=== PATIENT | female | born 1990 | race Caucasian/White ===

== ENCOUNTER → 2018-02-19 09:10 | Outpatient (CLI) | payer OTHER, SELFPAY ==
[2018-03-04 20:54] LABS: HCG Quantitative /Beta subunit 12512 mIU/mL
== END ==
PROVIDERS: PCP Family Medicine; Visit Provider Family Medicine
DX: O20.0 Threatened abortion (principal)
CPT/HCPCS: 36415; 84702

== ENCOUNTER → 2018-09-10 16:50 | Outpatient (CLI) | payer OTHER, SELFPAY ==
[2018-09-12 16:56] LABS: Progesterone 14.6 ng/mL
== END ==
PROVIDERS: Family Provider Family Medicine; PCP Family Medicine
DX: Z31.9 Encounter for procreative management, unspecified (principal)
CPT/HCPCS: 36415; 84144

== ENCOUNTER → 2019-01-12 16:48 | Outpatient (CLI) | payer OTHER, SELFPAY ==
[2019-01-12 17:58] LABS: Appearance Urine UA CLEAR; Bilirubin Urine UA NEGATIVE (NEGATIVE); Color Urine UA YELLOW; Glucose Urine UA NEGATIVE (Negative); Ketones Urine UA NEGATIVE (NEGATIVE); Leukocyte Esterase Urine UA NEGATIVE (NEGATIVE); Nitrite Urine UA NEGATIVE (Negative); Occult Blood Urine UA NEGATIVE (Negative); Protein Urine UA NEGATIVE (Negative); Specific Gravity Urine UA 1.015 (1.000-1.035); Urobilinogen Urine UA 0.2 E.U./dL (0.2)
[2019-01-12 18:09] LABS: Glucose 93 mg/dL (70-100); Hemoglobin A1C% w Est Avg Glu 4.8 % (4.0-6.0)
[2019-01-12 18:40] LABS: Add Manual Diff / Slide Review NO; Basophils Absolute Auto 0 /uL (0-100); Basophils Percent Auto 0.2 % (0-2); Eosinophils Absolute Auto 100 /uL (0-450); Eosinophils Percent Auto 1.1 % (2-4); Hematocrit 39.2 % (36-46); Lymphocytes Absolute Auto 2400 /uL (1100-4500); Lymphocytes Percent Auto 25.6 % (25-40); Mean Corpuscular HGB Conc 33.1 % (30-36); Mean Corpuscular Hemoglobin 28.9 PG (26-34); Mean Corpuscular Volume 87.4 fL (80-100); Monocytes Absolute Auto 500 /uL (0-900); Monocytes Percent Auto 5.7 % (3-14); Neutrophils Absolute Auto 6300 /uL (1500-7000); Neutrophils Percent Auto 67.4 % (50-75); Platelet Count 254 X10^3/uL (150-400); Red Blood Cell Count 4.48 X10^6/uL (4.0-5.2); Red Cell Distribution Width 13.4 % (11.6-14.8); White Blood Cell Count 9.4 X10^3/uL (4.5-11.0)
[2019-01-12 18:42] LABS: Hepatitis B Surface Antigen NEGATIVE s/c (NEGATIVE)
[2019-01-12 19:07] LABS: HIV 1 and 2 Antibody NEGATIVE (NEGATIVE); Hep C Virus Ab w/Reflex Quant NEGATIVE s/c (NEGATIVE)
[2019-01-14 15:10] LABS: Varicella IgG Antibody > 4000.00 Index (< 135.00)
[2019-01-15 23:04] LABS: RPR Screen Nonreactive (Nonreactive)
== END ==
PROVIDERS: PCP Family Medicine
DX: Z34.91 Encounter for supervision of normal pregnancy, unspecified, first trimester (principal)
CPT/HCPCS: 36415; 80055; 81003; 82947; 83036; 86703; 86787; 86803; 86850; 86900; 86901; 87086

== ENCOUNTER → 2019-02-08 16:50 | Outpatient (CLI) | payer OTHER, SELFPAY | PROVIDERS: PCP Family Medicine | DX: Z34.81 Encounter for supervision of other normal pregnancy, first trimester (principal); Z3A.12 12 weeks gestation of pregnancy; Z36.0 Encounter for antenatal screening for chromosomal anomalies | CPT/HCPCS: 36415; 84163; 84702 ==

== ENCOUNTER → 2019-03-08 16:30 | Outpatient (CLI) | payer OTHER, SELFPAY ==
[2019-03-12 12:27] LABS: Sequential Screen 2nd Trimeste SCREEN NEGATIVE
== END ==
PROVIDERS: PCP Family Medicine
DX: Z34.82 Encounter for supervision of other normal pregnancy, second trimester (principal)
CPT/HCPCS: 36415; 82105; 82677; 84163; 84702; 86336

== ENCOUNTER → 2019-05-04 09:21 | Outpatient (CLI) | payer OTHER, SELFPAY ==
[2019-05-04 10:59] LABS: Hematocrit 34.6 % (36-46); Hemoglobin 11.8 g/dL (12.0-16.0)
[2019-05-04 11:13] LABS: GTT (PREG) 1 Hour PP 50gm Dose 110 mg/dL (76-139)
== END ==
PROVIDERS: PCP Family Medicine
DX: Z34.82 Encounter for supervision of other normal pregnancy, second trimester (principal)
CPT/HCPCS: 36415; 82950; 85014; 85018

== ENCOUNTER → 2019-07-20 10:15 | Outpatient (CLI) | payer OTHER, SELFPAY ==
[2019-07-21 08:18] LABS: Strep Grp B PCR POS for Grp B Strep
== END ==
PROVIDERS: PCP Family Medicine
DX: Z34.83 Encounter for supervision of other normal pregnancy, third trimester (principal); Z3A.35 35 weeks gestation of pregnancy
CPT/HCPCS: 87186; 87653

== ENCOUNTER 2019-07-31 07:27 | Inpatient (IN) | payer OTHER, SELFPAY ==
[2019-07-31] MEDS: OXYTOCIN PREMIX 30 UNIT/500 ML PLAST..BAG IV (08:55)
[2019-07-31] MEDS: CLINDAMYCIN 600 MG/50 ML PIGGYBACK 50 MG IV ×2 (08:55→15:02)
[2019-07-31] MEDS: LACTATED RINGERS 1,000 ML 100 ML IV (08:55)
--- NOTE | 2019-07-31 09:01 | P.HPOB_ITS ---
OB HPI Date/Time Date of admission: 07/31/19 Date Patient Seen: 07/31/19 Time Patient Seen: 09:01 History of Present Condition Chief complaint: : 2 Para: 0 Estimated Date of Delivery: 08/22/19 Estimated Gestational Age (weeks): 36 5/7 Narrative: Anne-Marie Anna is a 29 year old female two para 0 who presents with spontaneous rupture of membranes. The patient is GBS positive. The patient has had an uneventful . Blood pressures have been normotensive. Urines have been negative for glucose and protein. She has adequate fundal growth. She has had a documented 26 lb of weight gain. Indications Indication for induction OB: other (Premature spontaneous rupture of membranes) History of Present care: good care Dating criteria: LMP confirmed by 1st trimester US Ultrasounds: normal 1st trimester US and normal mid trimester US Obstetrical complications: none Medical complications: none Narrative: Uneventful pregnancyegative Preadmission Labs Blood type: B (+) positive -: Antibody screen: negative, Cystic fibrosis screen: unknown, GBS status: positive, HBsAG: negative, HIV: negative, HSV 1: negative, HSV 2: negative and RPR/VDLR: negative -: Chlamydia screen: detected (Negative) and Gonorrhea screen: detected (Negative) -: Rubella: immune and Varicella: immune HCT: 34.6 HCAB: negative PAP: Normal Sequential screen: Negative Urine: Negative 1 hr GTT: 11 Evaluation Evaluation Baseline heart rate: 150 Variability: Average (6-10) monitor accelerations: Present monitor decelerations: Absent Contraction Frequency (minutes): 10 Category of Tracing: I Cervical dilation (cm): 1 Cervical effacement (%): 50 station: -2 Non-invasive Membranes Rupture Test: positive PFSH Medical History PVCs (premature ventricular contractions) (Chronic) Radius/ulna fracture (Resolved) Surgical History History of myringotomy (Resolved) History of repair of anterior cruciate ligament of right knee (Resolved 2006) Family History Mother Osteoarthritis Hypertension Father Hyperlipidemia Grandmother Brain tumor Lung cancer Cancer Diabetes mellitus Breast cancer Grandmother Hypertension Hyperlipidemia Social History marital status: lives independently: Yes caregiver/support person: No pets and animals: Yes education level: master's degree occupational status: employed Smoking Status: Never smoker alcohol intake: current Meds Home Medications and Allergies Home Medications Medication Instructions Recorded Confirmed Type famotidine 10 mg tablet 10 mg PO DAILY 10/19/18 10/19/18 History loratadine 10 mg tablet 10 mg PO DAILY 10/19/18 12/30/18 History prenat.vits,terry,qgf-uuuq-qngui 1 tab PO DAILY 12/30/18 12/30/18 History fvztfysrht-wgtskgahfrtpy-fiskkuyo 1 cap PO Q6H PRN #30 cap 05/04/19 05/04/19 Rx 50 mg-300 mg-40 mg capsule omeprazole 20 mg capsule,delayed 20 mg PO DAILY #30 cap 07/07/19 Rx release Double Electric Breast Pump #1 ea 07/20/19 07/20/19 Rx Allergies Allergy/AdvReac Type Severity Reaction Status Date / Time Sulfa (Sulfonamide Allergy Intermediate RASH Verified 12/30/18 10:19 Antibiotics) [SULFA (SULFONAMIDE ANTIBIOTICS)] amoxicillin [From AUGMENTIN] Allergy Unknown Verified 12/30/18 10:19 clavulanic acid Allergy Unknown Verified 12/30/18 10:19 [From AUGMENTIN] Review of Systems Review of Systems ROS Unobtainable: All systems reviewed & are unremarkable except as noted in HPI and below Exam Const General: cooperative and healthy appearing [facility] Head: normal to inspection Ears: hearing grossly normal bilaterally Nose: external nose normal Face and sinus: normal facial exam Mouth: oral mucosae normal, lip normal, tongue normal and moist mucous membranes Teeth and gingiva: dentition normal Throat: posterior oropharynx normal Eyes General: appearance normal, both eyes and all related structures Neck Neck: normal visual inspection and full ROM Chest Chest: normal inspection of the chest and normal palpation of entire chest wall Breast inspection: normal inspection of the breasts and normal inspection of the axillae Breast Palpation: normal palpation of the breasts and normal palpation of the axillae Resp Effort & Inspection: normal respiratory effort Auscultation: clear to auscultation bilaterally Cardio Palpation: normal PMI Rate: regular rate Rhythm: regular rhythm Heart Sounds: S1 normal and S2 normal GI Inspection: normal to inspection Palpation: soft and no hepatosplenomegaly Percussion: normal to percussion Auscultation: normal bowel sounds External Female Exam: external appearance normal and normal appearance of the urethra Speculum Exam - Vagina: normal appearance of the vagina and normal vaginal discharge OB/External & Speculum: external exam normal Manual OB Exam: dilated 1, effaced 50% and station -2 Uterus Location (Fundal Height): 36 Presentation: vertex Amniotic Fluid: clear Back/Spine/Pelvis Thoracic/Lumbar Spine: thoracic and lumbar spine normal to inspection Skin General: no rashes or lesions noted Neuro General: alert, oriented x3, tone normal and moves all extremities Cognition: normal cognition Speech: speech normal Gait: normal gait Motor: muscle tone normal throughout Sensory Exam: no sensory deficits noted Extrem General: normal to inspection and normal exam except as noted Psych Appearance: grossly normal and well kempt Mental Status: mental status grossly normal Speech and Movement: speech and movement normal Objective Labs Result Diagrams: 07/31/19 08:40 Assessment and Plan Assessment and Plan Assessment and Plan narrative: 36 week intrauterine by good dates Premature spontaneous rupture membranes Group B strep positive Plan for clindamycin prophylactic therapy Plan for Pitocin induction of labor
[2019-07-31 09:02] LABS: Add Manual Diff / Slide Review NO; Basophils Absolute Auto 100 /uL (0-100); Basophils Percent Auto 0.5 % (0-2); Eosinophils Absolute Auto 100 /uL (0-450); Eosinophils Percent Auto 0.5 % (2-4); Hematocrit 37.2 % (36-46); Hemoglobin 12.4 g/dL (12.0-16.0); Lymphocytes Absolute Auto 2300 /uL (1100-4500); Lymphocytes Percent Auto 23.6 % (25-40); Mean Corpuscular HGB Conc 33.4 % (30-36); Mean Corpuscular Hemoglobin 26.9 PG (26-34); Mean Corpuscular Volume 80.5 fL (80-100); Monocytes Absolute Auto 700 /uL (0-900); Monocytes Percent Auto 7.4 % (3-14); Neutrophils Absolute Auto 6700 /uL (1500-7000); Platelet Count 240 X10^3/uL (150-400); Red Blood Cell Count 4.63 X10^6/uL (4.0-5.2); Red Cell Distribution Width 14.6 % (11.6-14.8); White Blood Cell Count 9.9 X10^3/uL (4.5-11.0)
[2019-07-31] MEDS: ONDANSETRON 4 MG/2 ML INJ IV (13:49)
[2019-07-31] MEDS: fentaNYL 100 MCG/2 ML INJ IV ×2 (15:44→16:54)
--- NOTE | 2019-07-31 19:42 | P.PCNOB_ITS ---
Events: Labor < 37 Weeks Labor & Delivery Delivery date: 07/31/19 Intrapartal events: None Cervical ripening method: none Induction method: per pitocin protocol Delivery augmentation: pitocin Delivery monitor: internal FHT and internal uterine Route of delivery: L&D Laceration Description: Perineal - 1st Degree Delivery repair: chromic Estimated blood loss (mL): 250 Anesthesia type: Epidural Complications: None Narrative: Patient with premature spontaneous rupture membranes at 36 and five 7th weeks. Pitocin induction of labor. Epidural was placed. Patient made rapid progress to complete post and delivered spontaneously live born infant with scores eight at 1 minute nine at 5 minutes in good condition. Nursing and respiratory therapy was in attendance and per oz the infant normal in good condition Plan for aftercare: Routine
[2019-07-31] MEDS: IBUPROFEN 600 MG TABLET PO (21:01)
[2019-08-01] MEDS: IBUPROFEN 600 MG TABLET PO ×4 (02:04→20:36)
[2019-08-01 05:21] LABS: Hematocrit 32.1 % (36-46); Hemoglobin 10.8 g/dL (12.0-16.0)
[2019-08-01] MEDS: FERROUS GLUCONATE 324 MG TABLET PO (08:20)
[2019-08-01] MEDS: PRENATAL VIT,CALC/IRON/FOLIC 1 TABLET 1 TAB PO (08:20)
[2019-08-01] MEDS: DOCUSATE 250 MG CAPSULE PO (08:20)
--- NOTE | 2019-08-01 08:33 | P.PNOB_ITS ---
Subjective - OB Subjective Patient comments: no complaints [place] baby status: doing well feeding status: exclusively breast feeding Narrative: Patient 12 hours status post spontaneous vaginal delivery without difficulty. Baby weighed 5 lb 6 oz. Baby is feeding well. Mother is having no difficulties Date Patient Seen: 08/01/19 Time Patient Seen: 08:34 Exam Narrative Exam Narrative: Fundus is U minus two Lochia is scant Perineum without evidence of hematoma Objective Labs Result Diagrams: 08/01/19 05:03 Labs: Laboratory Results - last 24 hr 07/31/19 08/01/19 08:40 05:03 Hgb 10.8 L Hct 32.1 L Blood Type B Positive Antibody Screen Negative Assessment & Plan Plan day: 1 plan OB: routine care Time Spent With Patient Time: Total time spent is greater than 50% in coordination of care (as documented) at patient's floor/unit and/or counseling patient: Time with patient: less than 15 minutes
[2019-08-02] MEDS: IBUPROFEN 600 MG TABLET PO ×2 (03:26→08:57)
[2019-08-02] MEDS: LANOLIN OINT 7 GM 1 APPLIC TOP (03:27)
--- NOTE | 2019-08-02 07:55 | P.DS_ITS ---
Discharge Providers Provider Date of admission: 07/31/19 07:27 Discharge Date: 08/02/19 Primary care physician: Marychuy Post MD Consults: 07/31/19 20:27 Consult to Medical Office Clerk Routine Comment: Discharge provider: Jaskaran Zaidi MD Summary Hospital Course Date Patient Seen: 08/02/19 Time Patient Seen: 07:55 Procedures: Pitocin induction of labor Internal monitor Epidural anesthesia Spontaneous vaginal delivery Hospital Course: Patient is 29 year old three para 0 who presented with premature spontaneous rupture the membranes at 36 and half weeks. Pitocin was begun. There was slow initial progress. An epidural was placed. Patient made good progress to complete and with pushing delivered spontaneously a live born male with score of eight at 1 minute and eight at 5 minutes in good condition. The patient sustained a first-degree vaginal tear which was repaired with two 0 chromic suture. Placenta delivered spontaneously. Cord had three vessels. The estimated blood loss was 250 cc. Post delivery the patient did well. She remained afebrile with stable vital signs and was progressively alimentated and ambulated without difficulty. She was discharged home for follow-up in four weeks Peripartum Data Delivery Method: Natural Vaginal Laceration description: Perineal - 1st Degree complications: none Status at Discharge Cognitive/behavioral status at discharge: oriented Functional status at discharge: independent ambulation Overall status at discharge: patient is progressing back to baseline Time Spent with Patient Time attestation: Total time spent providing and/or coordinating discharge services: Time spent: Less than 30 minutes Objective Labs Result Diagrams: 08/01/19 05:03 Exam Narrative Exam Narrative: Fundus U minus four Lochia scant Perineum without ecchymosis Discharge Plan Discharge Plan Patient Disposition: Home Discharge Med Rec/Prescriptions Prescriptions: New Dermoplast (with menthol) 20-0.5 % Aerosol 1 spray topical Q1HR PRN (Reason: perineal pain) Qty: 1 RF: 0 oxycodone-acetaminophen 5-325 mg Tablet 2 tab PO Q4HR PRN (Reason: Pain, Severe (7-10)) Qty: 10 RF: 0 ibuprofen 600 mg Tablet 600 mg PO Q6HR PRN (Reason: Pain, Mild (1-3)) Qty: 20 RF: 0 docusate sodium 250 mg Capsule 250 mg PO DAILY Qty: 10 RF: 0 Uir-E-Fxpipr Cream 1 applic topical PRN PRN (Reason: Tenderness) Qty: 1 RF: 0 ferrous gluconate 324 mg (38 mg iron) Tablet 324 mg PO DAILY Qty: 30 RF: 0 Continued omeprazole 20 mg capsule,delayed release(DR/EC) 20 mg PO DAILY Qty: 30 RF: 3 loratadine [Allergy Relief (loratadine)] 10 mg tablet 10 mg PO DAILY RF: 0 famotidine [Pepcid AC] 10 mg tablet 10 mg PO DAILY RF: 0 prenat.vits,terry,pkn-agiu-gyuiz tablet 1 tab PO DAILY RF: 0 enifsasftn-zjmwhflobjokg-fbps [Fioricet] 50-300-40 mg capsule 1 cap PO Q6H PRN (Reason: pain) Qty: 30 RF: 0 (DME) Double Electric Breast Pump Qty: 1 RF: 0 Follow up/Referrals: Marychuy Post MD [Primary Care Provider] - Jaskaran Zaidi MD [Physician] - 1 Month Provider Discharge Instructions Diet: Diet as Tolerated Activity: Up ad vicente Skin/Wound/Dressing Care Report to your healthcare provider any signs of infection, such as:: chills, fever, increased pain, unusual drainage and unusual redness Other wound treatment: Keep perineum clean and dry Discharge Data Primary Care Provider: Marychuy Post
[2019-08-02] MEDS: FERROUS GLUCONATE 324 MG TABLET PO (08:49)
[2019-08-02] MEDS: PRENATAL VIT,CALC/IRON/FOLIC 1 TABLET 1 TAB PO (08:52)
[2019-08-02] MEDS: DOCUSATE 250 MG CAPSULE PO (08:52)
== END 2019-08-02 14:35 | disposition home or self-care (01) | DRG 806 ==
PROVIDERS: PCP Family Medicine
DX: O42.013 Preterm premature rupture of membranes, onset of labor within 24 hours of rupture, third trimester (principal); D62 Acute posthemorrhagic anemia; Z37.0 Single live birth; O70.0 First degree perineal laceration during delivery; Z3A.36 36 weeks gestation of pregnancy; O99.824 Streptococcus B carrier state complicating childbirth; D64.9 Anemia, unspecified; O99.02 Anemia complicating childbirth
CPT/HCPCS: 01967; 36415; 59050; 59400; 85014; 85018; 85025; 86850; 86900; 86901; G0379; J2405; J2590; J3010

== ENCOUNTER → 2020-07-21 13:47 | Outpatient (CLI) | payer OTHER, MEDICAID, SELFPAY ==
[2020-07-21 14:18] LABS: Add Manual Diff / Slide Review NO; Basophils Absolute Auto 0 /uL (0-100); Basophils Percent Auto 0.4 % (0-2); Eosinophils Absolute Auto 300 /uL (0-450); Eosinophils Percent Auto 2.8 % (2-4); Hematocrit 38.8 % (36-46); Lymphocytes Absolute Auto 2800 /uL (1100-4500); Lymphocytes Percent Auto 28.6 % (25-40); Mean Corpuscular HGB Conc 33.4 % (30-36); Mean Corpuscular Hemoglobin 29.2 PG (26-34); Mean Corpuscular Volume 87.7 fL (80-100); Monocytes Absolute Auto 600 /uL (0-900); Neutrophils Absolute Auto 6000 /uL (1500-7000); Neutrophils Percent Auto 62.2 % (50-75); Platelet Count 268 X10^3/uL (150-400); Red Blood Cell Count 4.43 X10^6/uL (4.0-5.2); Red Cell Distribution Width 13.1 % (11.6-14.8); White Blood Cell Count 9.6 X10^3/uL (4.5-11.0)
[2020-07-21 14:24] LABS: Appearance Urine UA CLEAR; Bilirubin Urine UA NEGATIVE (NEGATIVE); Color Urine UA YELLOW; Glucose Urine UA NEGATIVE (Negative); Ketones Urine UA NEGATIVE (NEGATIVE); Leukocyte Esterase Urine UA NEGATIVE (NEGATIVE); Nitrite Urine UA NEGATIVE (Negative); Occult Blood Urine UA NEGATIVE (Negative); Protein Urine UA NEGATIVE (Negative); Specific Gravity Urine UA <=1.005 (1.000-1.035); Urobilinogen Urine UA 0.2 E.U./dL (0.2)
[2020-07-21 14:27] LABS: pH Urine UA 6.5 (4.5-8.0)
[2020-07-22 07:08] LABS: RPR Screen Non Reactive (Non Reactive)
[2020-07-22 08:09] LABS: Varicella IgG Antibody >4000 index (Immune >165)
[2020-07-23 17:23] LABS: HIV 1 & 2 Ab/Ag 4th Gen Combo NEGATIVE (NEGATIVE); Hep C Virus Ab w/Reflex Quant NEGATIVE s/c (NEGATIVE); Hepatitis B Surface Antigen NEGATIVE s/c (NEGATIVE)
== END ==
PROVIDERS: PCP Family Medicine; Referring Provider Family Medicine; Visit Provider Family Medicine
DX: Z34.81 Encounter for supervision of other normal pregnancy, first trimester (principal)
CPT/HCPCS: 36415; 80055; 81003; 86787; 86803; 86850; 86900; 86901; 87086; 87389

== ENCOUNTER → 2020-10-09 09:16 | Outpatient (CLI) | payer OTHER, MEDICAID, SELFPAY ==
--- NOTE | 2020-10-09 09:19 | DI.US.S_ITS ---
PROCEDURE: US OB >= 14 WEEKS FETUS INDICATIONS: ANATOMY OUTSIDE/PRIOR DATING DATA: Last menstrual period (LMP): 05/21/2020. LMP-based estimated date of delivery ([place]): 02/25/2021 . First dating scan (date and location): 10/09/2020 . Estimated date of delivery ([place]) from first dating scan: 02/27/2021 . TECHNIQUE: Real-time scanning was performed of the fetus, with image documentation and biometric measurements. Endovaginal scanning: No COMPARISON: [facility], , OB >= 14 WEEKS FETUS, 05/04/2019, 8:57. FINDINGS: General: A single living intrauterine gestation is present. Presentation: Variable. Placenta: Placental position is anterior , without previa. Amniotic fluid index: 14.1 cm, normal range is 5-24 cm. heart rate: 163 beats per minute. Maternal cervical canal: 3.5 cm long. Normal lower limit is 2.5 cm. biometrics: Biparietal diameter: 19 weeks 5 days Head circumference: 19 weeks 6 days Abdominal circumference: 20 weeks 1 day Femur length: 19 weeks 3 days Estimated gestational age from initial scan: not applicable. Composite gestational age from present scan: 19 weeks 6 days Estimated weight and percentile: 216 g, 29th percentile Measurement variability for biometric dating: +/- 7 days from 14 weeks to 15 weeks 6 days gestation, +/- 10 days from 16 weeks to 21 weeks 6 days gestation, +/- 2 weeks from 22 weeks to 27 weeks 6 days gestation, +/- 3 weeks for 28 weeks gestation or later. weight reference: 4500 g or EFW >90/95% is considered macrosomia or large for gestational age. EFW <10% is small for gestational age. EFW 5% or less is considered intra-uterine growth restriction. Anatomic survey: Neuro: Ventricles are non-dilated at less than 10 mm. Cisterna magna is normal at 3-11 mm. Cerebellum is normal in size and morphology. Nuchal skin fold: Normal at less than 6 mm between 14-21 weeks gestational age. Face: Nose and lips, facial profile are normal. Spine: No evidence for spina bifida. Heart: 4-chambered heart is present, with normal ventricular outflow tracts. Diaphragm: Diaphragm is intact. Stomach: Left-sided stomach is present. Kidneys: No hydronephrosis. Normal is less than 5 mm in 2nd trimester, less than 7 mm in 3rd trimester. Cord: 3-vessel cord has orthotopic insertion. Bladder: Normal in size. Extremities: All 4 extremities identified. IMPRESSION: 1. Single living IUP with mean composite gestational age of 19 weeks 6 days corresponding to ultrasound [place] of 02/27/2021. 2. Normal anatomic survey. Dictated by: [facility] Interpreted: Carter Gillis MD on 10/09/2020 at 13:29 Approved by: Carter Gillis M.D. on 10/09/2020 at 14:22
== END ==
PROVIDERS: PCP Family Medicine; Referring Provider Midwife; Visit Provider Midwife
DX: Z36.89 Encounter for other specified antenatal screening (principal); Z3A.19 19 weeks gestation of pregnancy
CPT/HCPCS: 76811

== ENCOUNTER → 2021-05-11 11:05 | Outpatient (CLI) | payer OTHER, MEDICAID, SELFPAY ==
[2021-05-11 16:30] LABS: Urine N gonorrhoeae NOT DETECTED
[2021-05-11 16:40] LABS: Urine Chlamydia NOT DETECTED
== END ==
PROVIDERS: PCP Family Medicine; Visit Provider Family Medicine
DX: Z11.3 Encounter for screening for infections with a predominantly sexual mode of transmission (principal)
CPT/HCPCS: 81025; 87491; 87591

== ENCOUNTER → 2021-06-08 10:02 | Outpatient (CLI) | payer OTHER, MEDICAID, SELFPAY | PROVIDERS: Family Provider Family Medicine; PCP Family Medicine; Visit Provider Family Medicine | DX: N89.8 Other specified noninflammatory disorders of vagina (principal) | CPT/HCPCS: 87070; 87205; 87210 ==

== ENCOUNTER 2021-08-01 09:00 | Outpatient (RCR) | payer OTHER, MEDICAID, SELFPAY ==
--- NOTE | 2021-06-15 14:52 | PT.OIE ---
Current Diagnoses Stress incontinence (female) (male) (06/15/21) Unspecified urinary incontinence (06/15/21) Past Medical History (Last Updated 07/11/20 @ 11:33 by Miriam Reyes RN) Acid reflux Chicken pox (~1993) Headache History of microdiscectomy (~2014) History of myringotomy (~1992) History of repair of anterior cruciate ligament of right knee (2006) History of right knee surgery (~2006) History of surgery on arm (~2001) Infertility Migraines (~2014) PVCs (premature ventricular contractions) Radius/ulna fracture Restless leg syndrome (~2018) [place] teeth removed (~2003) Past Surgical History (Last Updated 04/24/21 @ 11:28 by Marychuy Post MD) Anesthesia History of microdiscectomy (~2014) History of myringotomy (~1992) History of repair of anterior cruciate ligament of right knee (2006) History of right knee surgery (~2006) History of surgery on arm (~2001) S/P discectomy [place] teeth removed (~2003) Visit Care Team Role Provider Type Marychuy Post MD Attending Provider Physician Family Provider Primary Care Provider Referring Provider Specialty: [facility] Practice Address: [address] [place] [address], [facility] Email: [email or web address] Physical Therapy Initial Evaluation PT-OP-A Visit Information Start: 06/01/21 13:06 Freq: Status: Active Protocol: Document 06/15/21 09:00 AMB (Rec: 06/15/21 14:49 AMB [id number]) Out-Patient Physical Therapy Visit Information Visit Information Visit Type Initial Evaluation Visit Start Time 09:00 Visit Stop Time 09:45 Total Visit Minutes 45 Visit Number 1 PT-OP-B Current Condition Start: 06/01/21 13:06 Freq: Status: Active Protocol: Document 06/15/21 08:58 AMB (Rec: 06/15/21 09:25 AMB [id number]) Current Condition History of Current Condition Onset Date 2 years ago Current Complaints Urinary leaking- stress History of Current Condition In first , sneezing and coughing caused leaking, now daily leaking. Vaginal deliveries a little bit of tearing, needed one stitch with first, then no stitches with second, denies prolonged pushing. Uses a panty liner. 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 Denies pelvic heaviness, constipation, fecal incontinence, pelvic pain. Treatment Goals Patient/Caregiver Goals Not have to worry about stress incontinence Prior Functional Status Baseline Function- ADL's Independent Baseline Function- Mobility Independent Current Functional Impairments (Reported) Functional Limitations- ADL's leaking urine Personal Factors Other Personal Factors That May Effect Medical hx microdiscectomy for Therapy/Recovery R sided radicular pain in 2015, back pain has returned PT-OP-I Pelvic Floor Start: 06/01/21 13:06 Freq: Status: Active Protocol: Document 06/15/21 09:00 AMB (Rec: 06/15/21 14:49 AMB [id number]) Pelvic Floor Assessment Urine Pelvic Floor Surgery No Leakage Size Small Leakage Cause Cough,Exercise,Lifting,Sneeze Other Leakage Causes squatting to weed Leaks Per Day multiple Voiding Frequency 2-3 hours Urine Pad Type Panty Liner Pelvic Clock Pelvic Clock Other 2 finger width diastasis recti above umbilicus 2.5 diastasis recti below Prolapse Prolapse Comments pt with difficulty with valsva but no prolapse visualized Perineal Descent Resting Absent Bearing Absent Contraction Ability Voluntary Contraction Moderate Voluntary Relaxation Moderate Manual Muscle Testing Left 2 Manual Muscle Testing Right 2 Manual Muscle Testing Anterior 2 Manual Muscle Testing Posterior 3 Muscle Endurance (Seconds) 7 Number of Quick Contractions In 10 6 Seconds PT-OP-T Assessment and Plan Start: 06/01/21 13:06 Freq: Status: Active Protocol: Document 06/15/21 09:00 AMB (Rec: 06/15/21 14:49 AMB [id number]) Physical Therapy Assessment Rehab Potential Rehabilitation Potential Good Evaluation Complexity Number of Personal Factors/Comorbidities 1-2 Number of Body Systems Impaired 1-2 Clinical Presentation at Evaluation Stable Goals Two Impairment Core strength Short Term Goal (STG) Anne-Marie will improve her pelvic floor strength so that she can hold a pelvic floor contraction for 10 seconds in standing. STG Duration 4 weeks Mortgage Funder Goal (LTG) Anne-Marie will improve her strength so that she can perform a full squat while paco her pelvic floor. LTG Duration 10 weeks One Impairment Incontinence Short Term Goal (STG) Anne-Marie will be able to cough without leaking urine. STG Duration 4 weeks Mortgage Funder Goal (LTG) Anne-Marie will be able to squat to pull weeds without leaking urine. LTG Duration 10 weeks Assessment Summary Assessment Anne-Marie attends physical therapy with stress urinary incontinence that started during the of her first child and has persisted. She is now 3 months post with her second, and while she can contract her pelvic floor, has poor endurance and decreased use of the more anterior muslces and levator ani. She will benefit from physical therapy for instruction in appropriate strengthening of her pelvic floor and her deep core muscles given her history of back pain and diastasis recti. Physical Therapy Plan Frequency and Duration Frequency of Treatment 1x/Week Duration of Treatment 10 weeks Plan of Care Start Date 06/15/21 Plan of Care End Date 08/24/21 Therapeutic Interventions Therapeutic Interventions Home Exercise Program,Manual Therapy,Neuromuscular Re- education,Self-Care/Home Management,Therapeutic Activities,Therapeutic Exercises Modalities Biofeedback,Electric Stimulation Next Visit Focus/Plan Next Note Type Treatment Note Next Visit Plan sEMG
--- NOTE | 2021-06-15 14:53 | PT.OPPOC ---
Physical, Occupational & Speech Therapy At [facility] Current Diagnoses Stress incontinence (female) (male) (06/15/21) Unspecified urinary incontinence (06/15/21) Visit Care Team Role Provider Type Marychuy Post MD Attending Provider Physician Family Provider Primary Care Provider Referring Provider Specialty: Family Practice Address: [address] [place] [address], [facility] Email: [email or web address] Plan Of Care PT-OP-T Assessment and Plan Start: 06/01/21 13:06 Freq: Status: Active Protocol: Document 06/15/21 09:00 AMB (Rec: 06/15/21 14:49 AMB [id number]) Physical Therapy Assessment Rehab Potential Rehabilitation Potential Good Evaluation Complexity Number of Personal Factors/Comorbidities 1-2 Number of Body Systems Impaired 1-2 Clinical Presentation at Evaluation Stable Goals Two Impairment Core strength Short Term Goal (STG) Anne-Marie will improve her pelvic floor strength so that she can hold a pelvic floor contraction for 10 seconds in standing. STG Duration 4 weeks Crop Consultant Goal (LTG) Anne-Marie will improve her strength so that she can perform a full squat while paco her pelvic floor. LTG Duration 10 weeks One Impairment Incontinence Short Term Goal (STG) Anne-Marie will be able to cough without leaking urine. STG Duration 4 weeks Longterm Goal (LTG) Anne-Marie will be able to squat to pull weeds without leaking urine. LTG Duration 10 weeks Assessment Summary Assessment Anne-Marie attends physical therapy with stress urinary incontinence that started during the of her first child and has persisted. She is now 3 months post with her second, and while she can contract her pelvic floor, has poor endurance and decreased use of the more anterior muslces and levator ani. She will benefit from physical therapy for instruction in appropriate strengthening of her pelvic floor and her deep core muscles given her history of back pain and diastasis recti. Physical Therapy Plan Frequency and Duration Frequency of Treatment 1x/Week Duration of Treatment 10 weeks Plan of Care Start Date 06/15/21 Plan of Care End Date 08/24/21 Therapeutic Interventions Therapeutic Interventions Home Exercise Program,Manual Therapy,Neuromuscular Re- education,Self-Care/Home Management,Therapeutic Activities,Therapeutic Exercises Modalities Biofeedback,Electric Stimulation Next Visit Focus/Plan Next Note Type Treatment Note Next Visit Plan sEMG Plan of Care Dates Plan of Care Start Date 06/15/21 Plan of Care End Date 08/24/21 Electronically Signed by: Nida Manriquez, PT 06/15/21 [id number] Please Sign and Return: I have reviewed this Plan of Care and certify that the skilled therapy services above are required to meet the patient?s needs. Physician Signature Date Printed Name and Credentials Clinical Instructor Signature Printed Name and Credentials
--- NOTE | 2021-07-05 09:42 | PT.OTN ---
Current Diagnoses Unspecified urinary incontinence (07/05/21) Physical Therapy Treatment Note PT-OP-A Visit Information Start: 06/01/21 13:06 Freq: Status: Active Protocol: Document 07/05/21 08:15 AMB (Rec: 07/05/21 09:36 AMB [email or web address]) Out-Patient Physical Therapy Visit Information Visit Information Visit Type Treatment Note Visit Start Time 08:15 Visit Stop Time 09:00 Total Visit Minutes 45 Visit Number 2 PT-OP-B Current Condition Start: 06/01/21 13:06 Freq: Status: Active Protocol: Document 06/15/21 08:58 AMB (Rec: 06/15/21 09:25 AMB [id number]) Current Condition History of Current Condition Onset Date 2 years ago Current Complaints Urinary leaking- stress History of Current Condition In first , sneezing and coughing caused leaking, now daily leaking. Vaginal deliveries a little bit of tearing, needed one stitch with first, then no stitches with second, denies prolonged pushing. Uses a panty liner. 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 Denies pelvic heaviness, constipation, fecal incontinence, pelvic pain. Treatment Goals Patient/Caregiver Goals Not have to worry about stress incontinence Prior Functional Status Baseline Function- ADL's Independent Baseline Function- Mobility Independent Current Functional Impairments (Reported) Functional Limitations- ADL's leaking urine Personal Factors Other Personal Factors That May Effect Medical hx microdiscectomy for Therapy/Recovery R sided radicular pain in 2014, back pain has returned PT-OP-C Subjective Start: 06/01/21 13:06 Freq: Status: Active Protocol: Document 07/05/21 08:15 AMB (Rec: 07/05/21 09:36 AMB [email or web address]) OP-PT Subjective Patient Comments Patient Comments Anne-Marie is challenged by standing and seated kegels, lying down is going ok. Sneezing continues to cause leaking. PT-OP-I Pelvic Floor Start: 06/01/21 13:06 Freq: Status: Active Protocol: Document 06/15/21 09:00 AMB (Rec: 06/15/21 14:49 AMB [id number]) Pelvic Floor Assessment Urine Pelvic Floor Surgery No Leakage Size Small Leakage Cause Cough,Exercise,Lifting,Sneeze Other Leakage Causes squatting to weed Leaks Per Day multiple Voiding Frequency 2-3 hours Urine Pad Type Panty Liner Pelvic Clock Pelvic Clock Other 2 finger width diastasis recti above umbilicus 2.5 diastasis recti below Prolapse Prolapse Comments pt with difficulty with valsva but no prolapse visualized Perineal Descent Resting Absent Bearing Absent Contraction Ability Voluntary Contraction Moderate Voluntary Relaxation Moderate Manual Muscle Testing Left 2 Manual Muscle Testing Right 2 Manual Muscle Testing Anterior 2 Manual Muscle Testing Posterior 3 Muscle Endurance (Seconds) 7 Number of Quick Contractions In 10 6 Seconds PT-OP-Q Treatments Start: 06/01/21 13:06 Freq: Status: Active Protocol: Document 07/05/21 08:15 AMB (Rec: 07/05/21 09:36 AMB [email or web address]) Therapeutic Exercises Sitting Exercises 1 Sitting Exercise Name rolling in Comments cues for breath Neuro Re-Education Treatment Other Activities 1 Details sEMG Comments long holds and quick flicks, cues for gradual contraction with long holds so there isn't as much of a spike in the beginning, cues for engaging levator PT-OP-T Assessment and Plan Start: 06/01/21 13:06 Freq: Status: Active Protocol: Document 07/05/21 08:31 AMB (Rec: 07/05/21 08:58 AMB [id number]) Physical Therapy Assessment Goals Two Impairment Core strength Short Term Goal (STG) Anne-Marie will improve her pelvic floor strength so that she can hold a pelvic floor contraction for 10 seconds in standing. STG Duration 4 weeks Shelter Goal (LTG) Anne-Marie will improve her strength so that she can perform a full squat while paco her pelvic floor. LTG Duration 10 weeks One Impairment Incontinence Short Term Goal (STG) Anne-Marie will be able to cough without leaking urine. STG Duration 4 weeks Mark Up Designer Goal (LTG) Anne-Marie will be able to squat to pull weeds without leaking urine. LTG Duration 10 weeks Assessment Summary Assessment quick flicks: Max 37, avg 18, rest 8. Anne-Marie did well with quick flicks, although coordination was a challenge. Long holds needs guidance to avoid large spike and then fatigue quickly. Physical Therapy Plan Next Visit Focus/Plan Next Note Type Treatment Note Next Visit Plan Review roll in, try to add roll out. Progress to standing as tolerated.
--- NOTE | 2021-08-01 15:41 | PT.OTN ---
Current Diagnoses Unspecified urinary incontinence (08/01/21) Physical Therapy Treatment Note PT-OP-A Visit Information Start: 06/01/21 13:06 Freq: Status: Active Protocol: Document 08/01/21 09:00 AMB (Rec: 08/01/21 09:47 AMB [id number]) Out-Patient Physical Therapy Visit Information Visit Information Visit Type Treatment Note Visit Start Time 09:00 Visit Stop Time 09:45 Total Visit Minutes 45 Visit Number 3 PT-OP-B Current Condition Start: 06/01/21 13:06 Freq: Status: Active Protocol: Document 06/15/21 08:58 AMB (Rec: 06/15/21 09:25 AMB [id number]) Current Condition History of Current Condition Onset Date 2 years ago Current Complaints Urinary leaking- stress History of Current Condition In first , sneezing and coughing caused leaking, now daily leaking. Vaginal deliveries a little bit of tearing, needed one stitch with first, then no stitches with second, denies prolonged pushing. Uses a panty liner. 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 Denies pelvic heaviness, constipation, fecal incontinence, pelvic pain. Treatment Goals Patient/Caregiver Goals Not have to worry about stress incontinence Prior Functional Status Baseline Function- ADL's Independent Baseline Function- Mobility Independent Current Functional Impairments (Reported) Functional Limitations- ADL's leaking urine Personal Factors Other Personal Factors That May Effect Medical hx microdiscectomy for Therapy/Recovery R sided radicular pain in 2014, back pain has returned PT-OP-C Subjective Start: 06/01/21 13:06 Freq: Status: Active Protocol: Document 08/01/21 09:00 AMB (Rec: 08/01/21 15:41 AMB [email or web address]) OP-PT Subjective Patient Comments Patient Comments Anne-Marie is continuing to have stress incontinence with sneezing. Maybe a bit better with squatting. PT-OP-I Pelvic Floor Start: 06/01/21 13:06 Freq: Status: Active Protocol: Document 06/15/21 09:00 AMB (Rec: 06/15/21 14:49 AMB [id number]) Pelvic Floor Assessment Urine Pelvic Floor Surgery No Leakage Size Small Leakage Cause Cough,Exercise,Lifting,Sneeze Other Leakage Causes squatting to weed Leaks Per Day multiple Voiding Frequency 2-3 hours Urine Pad Type Panty Liner Pelvic Clock Pelvic Clock Other 2 finger width diastasis recti above umbilicus 2.5 diastasis recti below Prolapse Prolapse Comments pt with difficulty with valsva but no prolapse visualized Perineal Descent Resting Absent Bearing Absent Contraction Ability Voluntary Contraction Moderate Voluntary Relaxation Moderate Manual Muscle Testing Left 2 Manual Muscle Testing Right 2 Manual Muscle Testing Anterior 2 Manual Muscle Testing Posterior 3 Muscle Endurance (Seconds) 7 Number of Quick Contractions In 10 6 Seconds PT-OP-Q Treatments Start: 06/01/21 13:06 Freq: Status: Active Protocol: Document 08/01/21 09:00 AMB (Rec: 08/01/21 15:41 AMB [email or web address]) Therapeutic Exercises Supine Exercises 3 Supine Exercise Name hooklying march Comments wiht TA, and PF, and cues for breath 2 Supine Exercise Name hooklying leg fall out Comments with TA and PF 1 Supine Exercise Name hooklying TA and PF brace Comments with cues for breath Standing Exercises 1 Standing Exercise Name quick flicks and long hold with NBOS Reps/Minutes stride stance and WBOS PT-OP-T Assessment and Plan Start: 06/01/21 13:06 Freq: Status: Active Protocol: Document 08/01/21 09:00 AMB (Rec: 08/01/21 15:41 AMB [email or web address]) Physical Therapy Assessment Assessment Summary Assessment Added in core strengthening with TA to HEP and standing exercises. Physical Therapy Plan Next Visit Focus/Plan Next Note Type Treatment Note Next Visit Plan Review core stability in supine and standing exercises.
--- NOTE | 2021-09-18 09:22 | PT.OPDS ---
Current Diagnoses Unspecified urinary incontinence (08/01/21) Visit Care Team Role Provider Type Marychuy Post MD Attending Provider Physician Family Provider Primary Care Provider Referring Provider Specialty: Family Practice Address: [address] [place] [address], [facility] [place], [place], [facility] Email: [email or web address] Visit Number Visit Number 3 Discharge Summary PT-OP-B Current Condition Start: 06/01/21 13:06 Freq: Status: Active Protocol: Document 06/15/21 08:58 AMB (Rec: 06/15/21 09:25 AMB [id number]) Current Condition History of Current Condition Onset Date 2 years ago Current Complaints Urinary leaking- stress History of Current Condition In first , sneezing and coughing caused leaking, now daily leaking. Vaginal deliveries a little bit of tearing, needed one stitch with first, then no stitches with second, denies prolonged pushing. Uses a panty liner. 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 Denies pelvic heaviness, constipation, fecal incontinence, pelvic pain. Treatment Goals Patient/Caregiver Goals Not have to worry about stress incontinence Prior Functional Status Baseline Function- ADL's Independent Baseline Function- Mobility Independent Current Functional Impairments (Reported) Functional Limitations- ADL's leaking urine Personal Factors Other Personal Factors That May Effect Medical hx microdiscectomy for Therapy/Recovery R sided radicular pain in 2014, back pain has returned PT-OP-C Subjective Start: 06/01/21 13:06 Freq: Status: Active Protocol: Document 08/01/21 09:00 AMB (Rec: 08/01/21 15:41 AMB [email or web address]) OP-PT Subjective Patient Comments Patient Comments Anne-Marie is continuing to have stress incontinence with sneezing. Maybe a bit better with squatting. PT-OP-I Pelvic Floor Start: 06/01/21 13:06 Freq: Status: Active Protocol: Document 06/15/21 09:00 AMB (Rec: 06/15/21 14:49 AMB [id number]) Pelvic Floor Assessment Urine Pelvic Floor Surgery No Leakage Size Small Leakage Cause Cough,Exercise,Lifting,Sneeze Other Leakage Causes squatting to weed Leaks Per Day multiple Voiding Frequency 2-3 hours Urine Pad Type Panty Liner Pelvic Clock Pelvic Clock Other 2 finger width diastasis recti above umbilicus 2.5 diastasis recti below Prolapse Prolapse Comments pt with difficulty with valsva but no prolapse visualized Perineal Descent Resting Absent Bearing Absent Contraction Ability Voluntary Contraction Moderate Voluntary Relaxation Moderate Manual Muscle Testing Left 2 Manual Muscle Testing Right 2 Manual Muscle Testing Anterior 2 Manual Muscle Testing Posterior 3 Muscle Endurance (Seconds) 7 Number of Quick Contractions In 10 6 Seconds PT-OP-T Assessment and Plan Start: 06/01/21 13:06 Freq: Status: Active Protocol: Document 09/18/21 09:21 AMB (Rec: 09/18/21 09:22 AMB [id number]) Physical Therapy Assessment Goals Two Impairment Core strength Short Term Goal (STG) Anne-Marie will improve her pelvic floor strength so that she can hold a pelvic floor contraction for 10 seconds in standing. STG Duration 4 weeks Cement Despatch Operator Goal (LTG) Anne-Marie will improve her strength so that she can perform a full squat while paco her pelvic floor. LTG Duration 10 weeks One Impairment Incontinence Short Term Goal (STG) Anne-Marie will be able to cough without leaking urine. STG Duration 4 weeks Cement Despatch Operator Goal (LTG) Anne-Marie will be able to squat to pull weeds without leaking urine. LTG Duration 10 weeks Assessment Summary Assessment Anne-Marie was seen for 3 visits, she was instructed in a HEP, but had not noticed significant improvement at last visit. She then called to cancel her follow up appointments. Physical Therapy Plan Discharge Physical Therapy Discharge Reasons Patient Request
== END 2021-10-30 08:50 ==
LOC: PHYS 09:00
PROVIDERS: Family Provider Family Medicine; PCP Family Medicine; Referring Provider Family Medicine; Visit Provider Family Medicine
DX: R32 Unspecified urinary incontinence (principal)
CPT/HCPCS: 97110; 97112; 97161

== ENCOUNTER → 2021-10-08 15:27 | Outpatient (CLI) | payer OTHER, MEDICAID, SELFPAY ==
[2021-10-10 11:24] LABS: Chlamydia trachomatis Negative (Negative); Mycoplasma genitalium Negative (Negative); Neisseria gonorrhoeae Negative (Negative)
== END ==
PROVIDERS: Family Provider Family Medicine; PCP Family Medicine; Referring Provider Family Medicine; Visit Provider Family Medicine
DX: N89.8 Other specified noninflammatory disorders of vagina (principal)
CPT/HCPCS: 87210; 87491; 87563; 87591

== ENCOUNTER → 2022-08-14 15:30 | Outpatient (CLI) | payer OTHER, MEDICAID, SELFPAY ==
--- NOTE | 2022-08-14 15:31 | DI.MRI.S_ITS ---
PROCEDURE: MR FOOT RT WO CON INDICATIONS: Fall on 04/02 twisting foot; persistent pain swelling TECHNIQUE: Noncontrast sagittal T1 spin echo and T2 fast spin echo with fat saturation, long-axis T1 spin echo and T2 fast spin echo with fat saturation, short-axis T1 spin echo and T2 fast spin echo with fat saturation through the forefoot. COMPARISON: None. FINDINGS: Image quality: Excellent. Bones and joints: There is significant marrow edema involving proximal to mid shaft of 2nd metatarsal bone extending to metatarsal base. Subtle linear hypointense signal traversing 2nd metatarsal base is seen is suggestive of stress fracture. There is also marrow edema involving dorsal aspect of lateral cuneiform with subtle linear hypointense signal concerning for additional area of incomplete/stress fracture. No displaced fracture or dislocation. The sesamoid bones appear in expected positions, without internal edema. No metatarsophalangeal joint degeneration. No intraosseous lesions. Soft tissues: The visualized plantar foot muscles demonstrate normal signal and bulk. Visualized flexor and extensor tendons appear intact, without tenosynovitis. The distal insertions of the peroneus brevis and longus tendons appear intact. The principal Lisfranc ligament appears intact. No soft tissue ganglion cysts or bursal fluid collections. Sagittal images demonstrate no evidence for plantar plate tears. IMPRESSION: 1. Finding is suggestive of stress fracture involving 2nd metatarsal base with extensive marrow edema. No cortical disruption or displacement. Mild adjacent soft tissue edema. 2. Suggestion of contusion versus stress fracture involving dorsal aspect of lateral cuneiform. 3. No forefoot tendon or ligament signal abnormalities. Dictated by: Carter Gillis M.D. on 08/14/2022 at 21:06 Approved by: Carter Gillis M.D. on 08/14/2022 at 21:25
== END ==
PROVIDERS: Family Provider Family Medicine; PCP Family Medicine; Referring Provider Physician Assistant; Visit Provider Physician Assistant
DX: M79.671 Pain in right foot (principal); S99.921A Unspecified injury of right foot, initial encounter; W19.XXXA Unspecified fall, initial encounter; Y92.009 Unspecified place in unspecified non-institutional (private) residence as the place of occurrence of the external cause
CPT/HCPCS: 73718

== ENCOUNTER → 2023-12-04 15:35 | Outpatient (CLI) | payer OTHER, MEDICAID, SELFPAY ==
--- NOTE | 2023-12-04 15:37 | DI.US.S_ITS ---
PROCEDURE: US ABDOMEN COMPLETE INDICATIONS: pain TECHNIQUE: Real-time scanning was performed of the abdominal and retroperitoneal organs, with image documentation. COMPARISON: None. FINDINGS: Liver: Liver is diffusely increased in echogenicity. No focal hepatic abnormalities identified. Normal hepatic size. Gallbladder: No gallstones identified. Normal gallbladder wall. No pericholecystic fluid. Negative sonographic Patterson sign. Biliary ducts: Intrahepatic bile ducts are non-dilated. Extrahepatic bile duct caliber measures 3.7 mm. Normal is 6-7 mm or less in diameter, or 10 mm or less post-cholecystectomy. Pancreas: Visualized portions of the pancreas are sonographically normal. Spleen: Spleen is normal in size and homogeneous in echotexture. Kidneys: Kidneys are normal in size and echotexture. Right kidney measures 8.8 cm long; left kidney measures 9.7 cm long. No hydronephrosis or nephrolithiasis. No solid masses. Aorta: Visualized aorta is normal in caliber at less than 3 cm. Iliacs: Proximal common iliac arteries are normal in caliber at less than 2.5 cm. IVC: Intrahepatic inferior vena cava is patent. Miscellaneous: No free abdominal fluid. IMPRESSION: 1. Mildly increased hepatic echogenicity noted possibly related to hepatic steatosis but other sources of hepatocellular disease cannot be excluded. Recommend clinical correlation. 2. No source for abdominal pain and nausea and vomiting identified. If pain persist with conservative management, consider cross-sectional imaging such as CT or MRI. Dictated by: Kaiser Pinto Homero Interpreted: Montez Cast MD on 12/04/2023 at 16:33 Transcribed by: PAMELA on 12/04/2023 at 16:34 Approved by: Montez Cast M.D. on 12/04/2023 at 20:36
== END ==
LOC: US 15:36
PROVIDERS: Family Provider Family Medicine; PCP Family Medicine; Referring Provider Family Medicine; Visit Provider Family Medicine
DX: R10.9 Unspecified abdominal pain (principal)
CPT/HCPCS: 76700

== ENCOUNTER → 2023-12-23 07:43 | Outpatient (CLI) | payer OTHER, MEDICAID, SELFPAY ==
--- NOTE | 2023-12-23 07:45 | DI.NM.S_ITS ---
PROCEDURE: NM HIDA WITH CCK PHARMACEUTICAL: 5.5 mCi Tc-99m mebrofenin IV; 1.8 mcg CCK IV. INDICATIONS: abd pain TECHNIQUE: Following intravenous administration of Tc-99m mebrofenin, sequential anterior abdominal images were obtained. To evaluate the contractile response of the gallbladder in response to Cholecystokinin (CCK), sincalide (0.02 ?g/kg) was administered by slow intravenous infusion approximately 60 minutes after the administration of the radiopharmaceutical. Sequential imaging was continued for 30 minutes after the start of CCK infusion. Gallbladder ejection fraction was calculated. COMPARISON: None. FINDINGS: Biliary scan: There is normal tracer uptake and excretion by the liver. There is normal visualization of the intrahepatic ducts, common bile duct, and gallbladder. There is normal tracer transit into the duodenum. CCK stimulation: There is normal contractile response of the gallbladder to CCK infusion. The calculated gallbladder ejection fraction is 85%; normal values are above 35%. It has been shown that any patient abdominal pain after CCK administration is related to the rate of CCK injection, rather than to any underlying gallbladder disease (Clinical Nuclear Medicine 2012; 37: 63-70. Journal of Nuclear Medicine 2014; 55: 1-9). IMPRESSION: 1. Normal filling of gallbladder. No evidence for acute cholecystitis. 2. Normal contractile response of gallbladder to CCK stimulation. Dictated by: Javan Calderon M.D. on 12/23/2023 at 11:07 Approved by: Javan Calderon M.D. on 12/23/2023 at 11:07
== END ==
PROVIDERS: Family Provider Family Medicine; PCP Family Medicine; Referring Provider Family Medicine; Visit Provider Family Medicine
DX: R10.9 Unspecified abdominal pain (principal); R11.0 Nausea
CPT/HCPCS: 78227; A9537; J2805

== ENCOUNTER → 2025-07-08 09:14 | Outpatient (CLI) | payer OTHER, SELFPAY ==
[2025-07-08 10:25] LABS: Add Manual Diff / Slide Review NO; Hematocrit 39.0 % (36-46); Hemoglobin 13.3 g/dL (12.0-16.0); Lymphocytes Absolute Auto 1700 /uL (1100-4500); Mean Corpuscular HGB Conc 34.1 % (30-36); Mean Corpuscular Hemoglobin 29.5 PG (26-34); Mean Corpuscular Volume 86.5 fL (80-100); Platelet Count 219 X10^3/uL (150-400)
[2025-07-08 10:32] LABS: Natera Collection Specimen Collected
[2025-07-08 10:38] LABS: Appearance Urine UA CLEAR; Bilirubin Urine UA NEGATIVE (NEGATIVE); Color Urine UA YELLOW; Glucose Urine UA NEGATIVE (Negative); Ketones Urine UA NEGATIVE (NEGATIVE); Leukocyte Esterase Urine UA TRACE (NEGATIVE); Nitrite Urine UA NEGATIVE (Negative); Occult Blood Urine UA NEGATIVE (Negative); Protein Urine UA NEGATIVE (Negative); Specific Gravity Urine UA 1.010 (1.000-1.035); Urobilinogen Urine UA 0.2 E.U./dL (0.2)
[2025-07-08 10:41] LABS: pH Urine UA 6.0 (4.5-8.0)
[2025-07-08 11:28] LABS: Hepatitis B Surface Antigen NEGATIVE s/c (NEGATIVE)
[2025-07-08 11:33] LABS: HCG Quantitative /Beta subunit 29139 mIU/mL
[2025-07-08 11:34] LABS: Hep C Virus Ab w/Reflex Quant NEGATIVE s/c (NEGATIVE)
[2025-07-08 12:05] LABS: HIV 1 & 2 Ab/Ag 4th Gen Combo NEGATIVE (NEGATIVE)
== END ==
PROVIDERS: Family Provider Family Medicine; PCP Family Medicine; Referring Provider Family Medicine; Visit Provider Family Medicine
DX: O09.511 Supervision of elderly primigravida, first trimester (principal)
CPT/HCPCS: 36415; 80055; 81003; 81015; 84702; 86787; 86803; 86850; 86900; 86901; 87086; 87389

== ENCOUNTER → 2025-09-08 12:10 | Outpatient (CLI) | payer OTHER, SELFPAY ==
--- NOTE | 2025-09-08 12:11 | DI.US.S_ITS ---
PROCEDURE: US OB >= 14 WEEKS FETUS INDICATIONS: anatomy OUTSIDE/PRIOR DATING DATA: Last menstrual period (LMP): 04/28/2025. LMP-based estimated date of delivery ([place]): 02/02/2026. First dating scan (date and location): 09/09/2025 Estimated date of delivery ([place]) from first dating scan: 01/28/2026. The calculations are made using the working [place] of 02/02/2026. TECHNIQUE: Real-time scanning was performed of the fetus, with image documentation and biometric measurements. Endovaginal scanning: Not performed COMPARISON: [facility], OB >= 14 WEEKS FETUS, 10/09/2020, 9:29. FINDINGS: General: A single living intrauterine gestation is present. Presentation: Vertex. Placenta: Placental position is anterior , without previa. Amniotic fluid index: 12.4 cm, normal range is 5-24 cm. Single deepest vertical pocket is 3.5 cm. heart rate: 125 beats per minute. Maternal cervical canal: 3.1 cm long. Normal lower limit is 2.5 cm. biometrics: Biparietal diameter: 4.4 cm, 19 weeks 2 days Head circumference: 16.4 cm, 19 weeks 1 day Abdominal circumference: 14.5 cm, 19 weeks 5 days Femur length: 3.3 cm at 20 weeks 3 days Clinically estimated gestational age: 19 weeks 0 days Composite gestational age from present scan: 19 weeks 5 days Estimated weight and percentile: 324 g, 93rd percentile Anatomic survey: Neuro: Ventricles are non-dilated at less than 10 mm. Cisterna magna is normal at 3-11 mm. Cerebellum is normal in size and morphology. Nuchal skin fold: Normal at less than 6 mm between 14-21 weeks gestational age. Face: Nose and lips, facial profile are normal. Spine: No evidence for spina bifida. Heart: 4-chambered heart is present, with normal ventricular outflow tracts. Diaphragm: Diaphragm is intact. Stomach: Left-sided stomach is present. Kidneys: No hydronephrosis. Normal is less than 5 mm in 2nd trimester, less than 7 mm in 3rd trimester. Cord: 3-vessel cord has orthotopic insertion. Bladder: Normal in size. Extremities: All 4 extremities identified. IMPRESSION: 1. Living 2nd trimester intrauterine with no sonographic evidence of complications. Current ultrasound age is 5 days greater than clinical age. 2. Normal 2nd trimester anatomy study. We strive to produce accurate, complete, and clear reports of imaging services. To assist us in improving patient care, this report was composed using standard report templates and voice recognition software. Therefore, it may contain abnormal punctuation, insertions and/or omissions. Occasional wrong-word or sound-alike substitutions may occur. Though we review the report and make efforts to correct it, we do recommend that the report be read carefully in proper context to recognize any text inaccuracies. Dictated by: Ori Llanos M.D. on 09/09/2025 at 10:13 Approved by: Ori Llanos M.D. on 09/09/2025 at 10:23
== END ==
PROVIDERS: Family Provider Family Medicine; PCP Family Medicine; Referring Provider Family Medicine; Visit Provider Family Medicine
DX: Z34.82 Encounter for supervision of other normal pregnancy, second trimester (principal); Z3A.19 19 weeks gestation of pregnancy
CPT/HCPCS: 76811

== ENCOUNTER → 2025-09-19 15:35 | Outpatient (CLI) | payer OTHER, SELFPAY ==
[2025-09-19 17:33] LABS: GTT (PREG) 1 Hour PP 50gm Dose 93 mg/dL (76-139)
== END ==
PROVIDERS: PCP Family Medicine; Referring Provider Family Medicine; Visit Provider Family Medicine
DX: Z34.80 Encounter for supervision of other normal pregnancy, unspecified trimester (principal); Z3A.20 20 weeks gestation of pregnancy
CPT/HCPCS: 36415; 82950